=== PATIENT | female | born 1970 | race Caucasian/White ===

== ENCOUNTER 2016-10-11 11:24 | Emergency (ER) | payer BC, MEDICAID ==
[~2016-10-11] VITALS: Ht 170.2 cm; Wt 100.0 kg
[~2016-10-11 11:24] MED LIST: ATIVAN 0.50.5 MG/TAB PO; PREDNISONE20 MG PO; ZOLOFT 100MG100 MG PO; ZOLOFT 50MG50 MG PO
[2016-10-11 11:26] VITALS: BP 115/67; PULSE 89; TEMP 98
[2016-10-11] MEDS ORDERED: NORCO 325 MG-51 TAB PO (11:54)
== END 2016-10-11 12:38 | disposition home or self-care (01) ==
LOC: COL.ER 11:24
DX: S89.82XA Other specified injuries of left lower leg, initial encounter (principal); X50.1XXA Overexertion from prolonged static or awkward postures, initial encounter; Y92.830 Public park as the place of occurrence of the external cause
CPT/HCPCS: L1830

== ENCOUNTER 2017-12-11 16:41 | Emergency (ER) | payer BC ==
[~2017-12-11] VITALS: Ht 170.2 cm; Wt 95.5 kg
[~2017-12-11 16:41] MED LIST changes: +NEURONTIN300 MG/CAP PO; +NEXIUM 20MG20 MG PO; +NORCO 325 MG-51 TAB PO
[2017-12-11 16:43] VITALS: BP 133/69; PULSE 94; TEMP 98.9
== END 2017-12-11 17:06 | disposition left against medical advice (07) ==
LOC: COL.ER 16:41
DX: S61.011A Laceration without foreign body of right thumb without damage to nail, initial encounter (principal); W26.8XXA Contact with other sharp object(s), not elsewhere classified, initial encounter; Y93.G3 Activity, cooking and baking

== ENCOUNTER 2018-01-02 03:12 | Emergency (ER) | payer BC ==
[~2018-01-02] VITALS: Ht 170.2 cm; Wt 90.9 kg
[2018-01-02 03:18] VITALS: TEMP 98.9
[2018-01-02 03:41] LABS: COLLECTION METHOD CLEAN CATCH
[2018-01-02 03:55] LABS: MUCOUS Present /lpf; PH 5 (5-8); URINE APPEARANCE Hazy; URINE BACTERIA Rare /hpf; URINE BILIRUBIN Negative (NEGATIVE); URINE BLOOD 2+ (NEGATIVE); URINE COLOR Yellow; URINE GLUCOSE Negative (NEGATIVE); URINE KETONE Negative (NEGATIVE); URINE LEUKOCYTE ESTERASE Negative (NEGATIVE); URINE NITRATE Negative (NEGATIVE); URINE PROTEIN(semi-quant) 1+ (NEGATIVE); URINE RBC 0-2 /hpf; URINE UROBILINOGEN Negative (NEGATIVE)
[2018-01-02 03:55] LABS: BASO % 0.4 % (0.0-2.0); EOS # 0.3 (0.0-0.7); EOS % 3.8 % (0-4.0); GRAN # 3.6 (1.4-6.5); GRAN % 46.6 % (42.2-75.2); HEMOGLOBIN 12.7 g/dl (12.5-16.0); LYMPH # 3.2 (1.2-3.4); LYMPH % 41.9 % (20.0-51.0); MEAN CELL VOLUME 92 fl (80.0-100.0); MEAN CORPUSCULAR HEMOGLOBIN 32 pg (27.0-31.0); MEAN CORPUSCULAR HGB CONC 35 g/dl (33.0-37.0); MEAN PLATELET VOLUME 9.8 fl (7.4-10.4); MONO # 0.5 (0.1-0.6); PLATELET COUNT 211 K/mm3 (130-400); RED BLOOD COUNT 3.92 M/mm3 (4.10-5.30); REDCELL DISTRIBUTION WIDTH-CV 12.8 % (11.5-14.5)
[2018-01-02 03:56] LABS: TRICYCLIC ANTIDEPRESS URINE NEGATIVE
[2018-01-02 03:57] LABS: HEMATOCRIT 35.9 % (37.0-47.0)
[2018-01-02 04:15] LABS: ALANINE AMINOTRANSFERASE 27 U/L (9-52); ALBUMIN 3.9 gm/dL (3.5-5.0); ALCOHOL(ethanol),MEDICAL 204 mg/dL; ALKALINE PHOSPHATASE 62 U/L (50-136); ANION GAP 13 mmol/L (7-16); AST,SGOT 20 U/L (15-37); BILIRUBIN,TOTAL 0.2 mg/dL (0.0-1.0); BLOOD UREA NITROGEN 16 mg/dL (7-17); CARBON DIOXIDE 26 mmol/L (22-30); CHLORIDE 102 mmol/L (98-107); GLUCOSE 99 mg/dL (74-106); POTASSIUM 3.7 mmol/L (3.4-5.0); SODIUM 140 mmol/L (137-145); TOTAL PROTEIN 7.3 gm/dL (6.4-8.2)
[2018-01-02 04:16] LABS: ACETAMINOPHEN < 10 ug/mL (10-30); SALICYLATE < 1.0 mg/dL
[2018-01-02] MEDS ORDERED: LEXAPRO 5MG5 MG PO (04:16)
[2018-01-02 13:18] VITALS: BP 122/66; PULSE 80
== END 2018-01-02 13:19 | disposition home or self-care (01) ==
LOC: COL.ER 03:12
PROVIDERS: Emergency Medicine
DX: T45.0X2A Poisoning by antiallergic and antiemetic drugs, intentional self-harm, initial encounter (principal); R45.851 Suicidal ideations; F32.9 Major depressive disorder, single episode, unspecified; F10.129 Alcohol abuse with intoxication, unspecified; F17.210 Nicotine dependence, cigarettes, uncomplicated; Y90.7 Blood alcohol level of 200-239 mg/100 ml

== ENCOUNTER 2018-02-02 22:10 | Emergency (ER) | payer BC ==
[~2018-02-02] VITALS: Ht 172.7 cm; Wt 77.3 kg
[~2018-02-02 22:10] MED LIST changes: +LEXAPRO 5MG5 MG PO
[2018-02-02 22:29] LABS: COLLECTION METHOD CLEAN CATCH
[2018-02-02 22:37] LABS: PH 6 (5-8); SQUAMOUS EPITHELIAL 0-2 /hpf; URINE APPEARANCE Clear; URINE BACTERIA Rare /hpf; URINE BILIRUBIN Negative (NEGATIVE); URINE BLOOD 2+ (NEGATIVE); URINE COLOR Amber; URINE GLUCOSE Negative (NEGATIVE); URINE KETONE Negative (NEGATIVE); URINE LEUKOCYTE ESTERASE Negative (NEGATIVE); URINE NITRATE Negative (NEGATIVE); URINE PROTEIN(semi-quant) Negative (NEGATIVE); URINE RBC None Seen /hpf; URINE UROBILINOGEN Negative (NEGATIVE)
[2018-02-02 22:49] LABS: BASO # 0.1 (0.0-0.2); BASO % 0.8 % (0.0-2.0); EOS # 0.2 (0.0-0.7); EOS % 3.8 % (0-4.0); GRAN % 46.9 % (42.2-75.2); HEMOGLOBIN 13.1 g/dl (12.5-16.0); LYMPH # 2.7 (1.2-3.4); LYMPH % 42.2 % (20.0-51.0); MEAN CELL VOLUME 92 fl (80.0-100.0); MEAN CORPUSCULAR HEMOGLOBIN 33 pg (27.0-31.0); MEAN CORPUSCULAR HGB CONC 36 g/dl (33.0-37.0); MEAN PLATELET VOLUME 9.8 fl (7.4-10.4); MONO # 0.4 (0.1-0.6); PLATELET COUNT 180 K/mm3 (130-400); RED BLOOD COUNT 3.99 M/mm3 (4.10-5.30); REDCELL DISTRIBUTION WIDTH-CV 13.3 % (11.5-14.5)
[2018-02-02] MEDS ORDERED: ZOLOFT 100MG100 MG PO (22:51)
[2018-02-02 22:52] LABS: HEMATOCRIT 36.7 % (37.0-47.0)
[2018-02-02 23:00] LABS: ALANINE AMINOTRANSFERASE 25 U/L (9-52); ALBUMIN 3.7 gm/dL (3.5-5.0); ALCOHOL(ethanol),MEDICAL 230 mg/dL; ALKALINE PHOSPHATASE 55 U/L (50-136); ANION GAP 12 mmol/L (7-16); AST,SGOT 21 U/L (15-37); BILIRUBIN,TOTAL 0.2 mg/dL (0.0-1.0); BLOOD UREA NITROGEN 12 mg/dL (7-17); CALCIUM 8.4 mg/dL (8.4-10.2); CARBON DIOXIDE 24 mmol/L (22-30); CHLORIDE 106 mmol/L (98-107); CREATININE, serum 0.69 mg/dL (0.52-1.25); GLUCOSE 97 mg/dL (74-106); POTASSIUM 3.4 mmol/L (3.4-5.0); SODIUM 142 mmol/L (137-145); TOTAL PROTEIN 7.1 gm/dL (6.4-8.2)
[2018-02-02 23:06] LABS: ACETAMINOPHEN < 10 ug/mL (10-30); SALICYLATE < 1.0 mg/dL
[2018-02-02 23:07] LABS: TRICYCLIC ANTIDEPRESS URINE NEGATIVE
[2018-02-03] MEDS ORDERED: LEXAPRO20 MG PO (08:42)
[2018-02-03 10:50] VITALS: TEMP 97.1
[2018-02-03 14:00] VITALS: BP 145/91
[2018-02-03 14:30] VITALS: PULSE 84
== END 2018-02-03 14:35 ==
LOC: COL.ER 22:10
PROVIDERS: Emergency Medicine
DX: T45.0X2A Poisoning by antiallergic and antiemetic drugs, intentional self-harm, initial encounter (principal); T51.92XA Toxic effect of unspecified alcohol, intentional self-harm, initial encounter; F32.9 Major depressive disorder, single episode, unspecified; Y90.7 Blood alcohol level of 200-239 mg/100 ml
CPT/HCPCS: J2060; J7030

== ENCOUNTER 2018-07-13 21:48 | Emergency (ER) | payer BC ==
[~2018-07-13] VITALS: Ht 170.2 cm; Wt 95.5 kg
[~2018-07-13 21:48] MED LIST changes: +LEXAPRO20 MG PO
[2018-07-13 21:53] VITALS: BP 175/94; TEMP 98
[2018-07-13] MEDS ORDERED: FOLIC ACID0.4 MG (22:25)
[2018-07-13] MEDS ORDERED: VITAMIN B COMPL1 SGL PO (22:25)
[2018-07-13 22:47] VITALS: PULSE 73
== END 2018-07-13 22:49 | disposition home or self-care (01) ==
LOC: COL.ER 21:48
DX: S50.02XA Contusion of left elbow, initial encounter (principal); W19.XXXA Unspecified fall, initial encounter; Y93.51 Activity, roller skating (inline) and skateboarding

== ENCOUNTER 2018-08-23 12:22 | Emergency (ER) | payer BC ==
[~2018-08-23] VITALS: Ht 170.2 cm; Wt 100.0 kg
[~2018-08-23 12:22] MED LIST changes: +FOLIC ACID0.4 MG; +VITAMIN B COMPL1 SGL PO
[2018-08-23 12:29] VITALS: TEMP 98.5
[2018-08-23] MEDS ORDERED: LIPITOR20 MG PO (13:02)
[2018-08-23 13:30] VITALS: BP 131/80; PULSE 75
[2018-08-23] MEDS ORDERED: CLEOCIN HCL300 MG PO (13:33)
== END 2018-08-23 13:40 | disposition home or self-care (01) ==
LOC: COL.ER 12:22
DX: R22.0 Localized swelling, mass and lump, head (principal); F32.9 Major depressive disorder, single episode, unspecified; F41.9 Anxiety disorder, unspecified; F17.210 Nicotine dependence, cigarettes, uncomplicated

== ENCOUNTER 2018-09-16 04:16 | Emergency (ER) | payer BC ==
[~2018-09-16] VITALS: Ht 170.2 cm; Wt 97.7 kg
[~2018-09-16 04:16] MED LIST changes: +CLEOCIN HCL300 MG PO; +LIPITOR20 MG PO
[2018-09-16 04:49] LABS: BASO # 0.1 (0.0-0.2); BASO % 0.6 % (0.0-2.0); EOS # 0.3 (0.0-0.7); GRAN # 4.5 (1.4-6.5); GRAN % 51.6 % (42.2-75.2); HEMATOCRIT 37.3 % (37.0-47.0); LYMPH # 3.4 (1.2-3.4); MEAN CELL VOLUME 91 fl (80.0-100.0); MEAN CORPUSCULAR HEMOGLOBIN 32 pg (27.0-31.0); MEAN CORPUSCULAR HGB CONC 35 g/dl (33.0-37.0); MONO # 0.5 (0.1-0.6); MONO % 5.5 % (1.7-9.3); PLATELET COUNT 275 K/mm3 (130-400); RED BLOOD COUNT 4.11 M/mm3 (4.10-5.30)
[2018-09-16 04:52] LABS: TRICYCLIC ANTIDEPRESS URINE NEGATIVE
[2018-09-16 05:00] LABS: ALANINE AMINOTRANSFERASE 12 U/L (9-52); ALBUMIN 4.1 gm/dL (3.5-5.0); ALCOHOL(ethanol),MEDICAL 111 mg/dL; ALKALINE PHOSPHATASE 76 U/L (50-136); ANION GAP 12 mmol/L (7-16); AST,SGOT 21 U/L (15-37); BILIRUBIN,TOTAL 0.3 mg/dL (0.0-1.0); BLOOD UREA NITROGEN 17 mg/dL (7-17); CALCIUM 9.4 mg/dL (8.4-10.2); CARBON DIOXIDE 21 mmol/L (22-30); CHLORIDE 109 mmol/L (98-107); CREATININE, serum 0.64 (0.52-1.25); GLUCOSE 111 mg/dL (74-106); POTASSIUM 3.8 mmol/L (3.4-5.0); SODIUM 142 mmol/L (137-145); TOTAL PROTEIN 7.8 gm/dL (6.4-8.2)
[2018-09-16 05:11] LABS: ACETAMINOPHEN < 10 ug/mL (10-30); SALICYLATE < 1.0 mg/dL
[2018-09-16 10:30] VITALS: BP 130/80; PULSE 82; TEMP 97.7
== END 2018-09-16 10:36 | disposition home or self-care (01) ==
LOC: COL.ER 04:16
PROVIDERS: Emergency Medicine
DX: R45.851 Suicidal ideations (principal); F32.9 Major depressive disorder, single episode, unspecified; E78.5 Hyperlipidemia, unspecified; F17.210 Nicotine dependence, cigarettes, uncomplicated

== ENCOUNTER 2018-12-08 22:56 | Emergency (ER) | payer BC ==
[~2018-12-08] VITALS: Ht 172.7 cm; Wt 100.0 kg
[2018-12-08 23:03] VITALS: BP 109/60; PULSE 86; TEMP 98
== END 2018-12-08 23:17 | disposition left against medical advice (07) ==
LOC: COL.ER 22:56
DX: M25.562 Pain in left knee (principal)